=== PATIENT | female | born 1980 | race Caucasian/White ===

== ENCOUNTER 2020-05-20 13:45 | Emergency (ER) | payer OTHER ==
[2020-05-20 13:52] VITALS: BMI 25.4
[2020-05-20] MEDS: ACETAMINOPHEN 500 MG TABLET (FP) PO ONE ×2 (14:36→14:39)
[2020-05-20] MEDS ORDERED: ACETAMINOPHEN 500 MG TABLET (FP) ONE (14:36)
[2020-05-20 15:39] LABS: BASO % 0.9 % (0-2.0); EOS % 0.6 % (0-4.5); HEMATOCRIT 38.9 % (32.4-45.2); HEMOGLOBIN 13.2 GM/dL (10.7-15.3); LYMPH % 35.8 % (8-40); MCH 28.7 pg (25.7-33.7); MCHC 33.9 g/dl (32.0-36.0); MEAN CELL VOLUME 84.6 fl (80-96); MEAN PLT VOLUME 9.4 fl (7.5-11.1); MONO % 6.8 % (3.8-10.2); NEUT % 55.9 % (42.8-82.8); PLATELET COUNT 235 K/MM3 (134-434); RDW 15.4 % (11.6-15.6); WHITE BLOOD COUNT 6.3 K/mm3 (4.0-10.0)
[2020-05-20 15:44] LABS: EPI CELLS 12 /uL (0-25.1); HYALINE CASTS 1 /uL (0-3.1); PH,URINE 7.5 (5.0-8.0); URINE APPEARANCE CLEAR; URINE BACTERIA 542 /uL (0-1359); URINE BILIRUBIN NEGATIVE (NEGATIVE); URINE COLOR YELLOW; URINE GLUCOSE (UA) NEGATIVE (NEGATIVE); URINE KETONE NEGATIVE (NEGATIVE); URINE LEUK ESTERASE NEGATIVE (NEGATIVE); URINE NITRITE NEGATIVE (NEGATIVE); URINE PROTEIN NEGATIVE (NEGATIVE); URINE RBC 14 /uL (0-23.9); URINE UROBILINOGEN 0.2 mg/dL (0.2-1.0); URINE WBC 13 /uL (0-25.8)
[2020-05-20 15:56] LABS: POTASSIUM 4.1 mmol/L (3.5-5.1)
[2020-05-20 15:58] LABS: CALCIUM 8.9 mg/dL (8.5-10.1)
[2020-05-20 15:59] LABS: ALBUMIN 3.7 g/dl (3.4-5.0); BLOOD UREA NITROGEN 6.8 mg/dL (7-18)
[2020-05-20 16:02] LABS: CREATININE 0.5 mg/dL (0.55-1.3)
[2020-05-20 16:04] LABS: BILIRUBIN,TOTAL 0.4 mg/dL (0.2-1); TOT PROT 7.5 g/dl (6.4-8.2)
[2020-05-20 18:50] VITALS: BP 120/65; PULSE 16; TEMP 98.5
== END 2020-05-20 18:50 | disposition home or self-care (01) ==
LOC: JER 13:45
DX: O20.0 Threatened abortion (principal); O23.41 Unspecified infection of urinary tract in pregnancy, first trimester; Z3A.01 Less than 8 weeks gestation of pregnancy
CPT/HCPCS: 36415; 76801-TC; 80053; 81003; 84702; 85025; 86850; 86900; 86901; 87086; 99285-25

== ENCOUNTER 2020-12-09 17:30 | Inpatient (IN) | payer OTHER ==
[2020-12-09] MEDS ORDERED: DEXTROSE 5%-LACTATED RINGERS 500 ML IV ONE (19:00)
[2020-12-09 20:38] LABS: BASO % 0.4 % (0-2.0); EOS % 0.7 % (0-4.5); HEMATOCRIT 36.3 % (32.4-45.2); HEMOGLOBIN 12.5 GM/dL (10.7-15.3); LYMPH % 27.4 % (8-40); MCH 31.8 pg (25.7-33.7); MCHC 34.5 g/dl (32.0-36.0); MEAN CELL VOLUME 92.1 fl (80-96); MEAN PLT VOLUME 8.8 fl (7.5-11.1); NEUT % 62.5 % (42.8-82.8); PLATELET COUNT 163 10^3/uL (134-434); RBC 3.94 M/mm3 (3.60-5.2); RDW 13.3 % (11.6-15.6); WHITE BLOOD COUNT 5.8 K/mm3 (4.0-10.0)
[2020-12-09] MEDS ORDERED: BUTORPHANOL TARTRATE 1 MG/ML VIAL IVPUSH ONE (20:49)
[2020-12-09] MEDS ORDERED: PROMETHAZINE HCL 25 MG/1 ML VIAL IVPUSH ONE (20:49)
[2020-12-09 20:51] LABS: INR 0.88 (0.83-1.09); PROTHROMBIN TIME (PATIENT) 10.9 SEC (9.7-13.0)
[2020-12-09 20:53] LABS: ACTIVATED PTT 25.4 SECONDS (25.2-36.5)
[2020-12-09] MEDS ORDERED: AMPICILLIN - 2 GM in SODIUM CHLORIDE 100 ML IVPB ONE (21:00)
[2020-12-09] MEDS ORDERED: OXYTOCIN 30 UNITS in 0.9% NS 30 UNIT/500 ML INFUS.BAG IVPB SCH (21:00)
[2020-12-09 21:07] LABS: CALCIUM 8.8 mg/dL (8.5-10.1)
[2020-12-09 21:08] LABS: BLOOD UREA NITROGEN 9.6 mg/dL (7-18)
[2020-12-09 21:11] LABS: CREATININE 0.6 mg/dL (0.55-1.3)
[2020-12-09] MEDS ORDERED: OXYTOCIN 30 UNITS in 0.9% NS 30 UNIT/500 ML INFUS.BAG IVPB ONE (21:11)
[2020-12-09] MEDS ORDERED: AMPICILLIN SODIUM 2 GM VIAL ONE (21:11)
[2020-12-09 21:26] VITALS: BMI 31.2
[2020-12-10] MEDS ORDERED: AMPICILLIN SODIUM 1 GM VIAL ONE ×2 (01:10→05:06)
[2020-12-10] MEDS: AMPICILLIN - 1 GM in SODIUM CHLORIDE 100 ML IVPB SCH ×2 (01:10→05:10)
[2020-12-10] MEDS ORDERED: PROMETHAZINE HCL 25 MG/1 ML VIAL ONE (02:37)
[2020-12-10] MEDS ORDERED: BUTORPHANOL TARTRATE 2 MG/ML VIAL ONE (02:37)
[2020-12-10] MEDS ORDERED: OXYTOCIN 20 UNITS in 0.9% NS 20 UNIT/1,000 ML INFUS.BAG IV ONE (05:28)
[2020-12-10] MEDS ORDERED: LIDOCAINE HCL 1% PRESERVATIVE FREE - 30ML VIAL ONE (05:56)
[2020-12-10] MEDS ORDERED: BENZOCAINE 20% 57 GM BOTTLE TP PRN (06:18)
[2020-12-10] MEDS ORDERED: BENZOCAINE 28 GM HEMORRHOIDAL OINTMENT TP PRN (06:18)
[2020-12-10] MEDS ORDERED: WITCH HAZEL 50% (TUCKS) 40 PAD/JAR PAD TP PRN (06:18)
[2020-12-10] MEDS ORDERED: BISACODYL 10 MG SUPP.RECT RC PRN (06:18)
[2020-12-10] MEDS ORDERED: METHYLERGONOVINE MALEATE 0.2 MG/1 ML AMP IM PRN (06:18)
[2020-12-10] MEDS ORDERED: OXYTOCIN 20 UNITS in 0.9% NS 20 UNIT/1,000 ML INFUS.BAG IV SCH (06:30)
[2020-12-10 07:11] LABS: CORD HCO3 20.9 mmHg (20-29); CORD PCO2 41.8 mmHg (30-78); CORD pH 7.317 (7.14-7.44)
[2020-12-10 07:12] LABS: CORD BASE EXCESS -4.3 mmol/L (0-2); CORD HCO3 21.3 mmHg (20-29); CORD PCO2 41.2 mmHg (30-78); CORD pH 7.332 (7.14-7.44)
[2020-12-10] MEDS: PRENATAL VITAMINS W/ FOLIC ACID TABLET (FP) PO SCH (10:39)
[2020-12-10] MEDS: FERROUS SO4 325 MG TABLET (FP) PO SCH ×2 (10:39→21:10)
[2020-12-10] MEDS: IBUPROFEN 600 MG TABLET (FP) PO PRN (13:04)
[2020-12-10] MEDS: ACETAMINOPHEN 325 MG TABLET (FP) PO PRN (13:05)
[2020-12-11] MEDS: IBUPROFEN 600 MG TABLET (FP) PO PRN (07:56)
[2020-12-11] MEDS: ACETAMINOPHEN 325 MG TABLET (FP) PO PRN (07:56)
[2020-12-11 08:45] LABS: BASO % 0.4 % (0-2.0); EOS % 1.1 % (0-4.5); HEMATOCRIT 28.2 % (32.4-45.2); HEMOGLOBIN 9.5 GM/dL (10.7-15.3); LYMPH % 22.9 % (8-40); MCH 31.4 pg (25.7-33.7); MCHC 33.7 g/dl (32.0-36.0); MEAN CELL VOLUME 93.4 fl (80-96); MEAN PLT VOLUME 9.5 fl (7.5-11.1); MONO % 6.7 % (3.8-10.2); NEUT % 68.9 % (42.8-82.8); PLATELET COUNT 150 10^3/uL (134-434); RBC 3.02 M/mm3 (3.60-5.2); RDW 13.5 % (11.6-15.6); WHITE BLOOD COUNT 8.6 K/mm3 (4.0-10.0)
[2020-12-11] MEDS: PRENATAL VITAMINS W/ FOLIC ACID TABLET (FP) PO SCH (09:53)
[2020-12-11] MEDS: FERROUS SO4 325 MG TABLET (FP) PO SCH ×2 (09:53→22:19)
[2020-12-11] MEDS: SENNOSIDES/DOCUSATE COMBO (SENNA PLUS) TABLET (UD) PO PRN (22:19)
[2020-12-12 08:36] VITALS: BP 119/69; PULSE 72; TEMP 98
[2020-12-12] MEDS: FERROUS SO4 325 MG TABLET (FP) PO SCH (09:01)
[2020-12-12] MEDS: SENNOSIDES/DOCUSATE COMBO (SENNA PLUS) TABLET (UD) PO PRN (09:01)
[2020-12-12] MEDS: PRENATAL VITAMINS W/ FOLIC ACID TABLET (FP) PO SCH (09:01)
[2020-12-12] MEDS: IBUPROFEN 600 MG TABLET (FP) PO PRN (09:01)
[2020-12-12] MEDS: ACETAMINOPHEN 325 MG TABLET (FP) PO PRN (09:02)
== END 2020-12-12 09:00 | disposition home or self-care (01) | DRG 560 ==
LOC: JDEL 17:30 → JLDR 19:45 → J3W 12-10 08:18
PROVIDERS: ADMIT Obstetrics & Gynecology; ATTEND Obstetrics & Gynecology
PROC: 3E033VJ Introduction of Other Hormone into Peripheral Vein, Percutaneous Approach (ICD-10-PCS; 2020-12-09)
PROC: 10E0XZZ Delivery of Products of Conception, External Approach (ICD-10-PCS; principal; 2020-12-10)
PROC: 0W8NXZZ Division of Female Perineum, External Approach (ICD-10-PCS; 2020-12-10)
DX: O69.81X0 Labor and delivery complicated by cord around neck, without compression, not applicable or unspecified (principal); Z3A.39 39 weeks gestation of pregnancy; Z37.0 Single live birth
CPT/HCPCS: 36415; 36600; 59409; 80048; 82803; 85025; 85610; 85730; 86780; 86850; 86900; 86901; C9803; U0003; U0005

== ENCOUNTER 2023-11-07 22:28 | Emergency (ER) | payer OTHER ==
[2023-11-07 22:36] VITALS: RESP 16; BMI 26.4
[2023-11-07] MEDS: SODIUM CHLORIDE 1,000 ML IV STA (23:03)
[2023-11-07 23:08] LABS: HEMATOCRIT 43.5 % (32.4-45.2); MCH 29.1 pg (25.7-33.7); MCHC 32.3 g/dl (32.0-36.0); PLATELET COUNT 245.3 10^3/uL (134-434); RBC 4.83 10^6/uL (3.60-5.2); RDW 13.7 % (11.6-15.6); WHITE BLOOD COUNT 8.3 10^3/uL (4.0-10.8)
[2023-11-07 23:10] LABS: HCG,QUALITATIVE URINE Negative
[2023-11-07 23:14] LABS: PLATELET ESTIMATE ADEQUATE
[2023-11-07 23:16] VITALS: BP 113/66; PULSE 69; TEMP 98.3
[2023-11-07 23:31] LABS: ALBUMIN 4.3 g/dl (3.4-5.0); BILIRUBIN,TOTAL 0.5 mg/dl (0.2-1); CALCIUM 9.3 mg/dl (8.5-10.1); CREATININE 0.6 mg/dl (0.6-1.3); POTASSIUM 3.5 mmol/L (3.5-5.1)
== END 2023-11-08 00:04 | disposition home or self-care (01) ==
LOC: FER 22:28
PROC: 3E0337Z Introduction of Electrolytic and Water Balance Substance into Peripheral Vein, Percutaneous Approach (ICD-10-PCS; principal; 2023-11-07)
DX: R42 Dizziness and giddiness (principal); R11.0 Nausea; R05.9 Cough, unspecified; B34.9 Viral infection, unspecified
CPT/HCPCS: 36415; 80053; 81003; 84703; 85027; 99284-25